=== PATIENT | male | born 1965 ===

== ENCOUNTER 2021-11-30 11:33 | Emergency (ER) | payer SELFPAY ==
[2021-11-30 11:37] VITALS: BP 172/99
--- NOTE | 2021-12-02 09:12 | Electrocardiograph Report ---
[facility] Test Date: 2021-11-30 Test Time: 11:46:40 Pat Name: LIVAN WINCHESTER Department: Room: Gender: M Building Mover: TECH : 1965 Requested By: CARLOS HOANG Order Number: [id number] Reading MD: Leonardo Callahan Measurements Intervals [place] Rate: 118 P: 44 [place]: 181 QRS: 13 QRSD: 74 T: 45 QT: 304 QTc: 425 Interpretive Statements Sinus tachycardia Probable left atrial enlargement Probable anteroseptal infarct, recent No previous ECG available for comparison Electronically Signed On 12-02-2021 9:12:01 EDT by Leonardo Callahan
== END 2021-11-30 17:00 | disposition left against medical advice (07) ==
LOC: ED 11:33
DX: R51.9 Headache, unspecified (principal); Z53.21 Procedure and treatment not carried out due to patient leaving prior to being seen by health care provider
CPT/HCPCS: 93005